=== PATIENT | male | born 1995 | race Caucasian/White ===

== ENCOUNTER 2020-12-19 15:20 | Emergency (ER) | payer OTHER ==
[~2020-12-19] VITALS: Ht 170.2 cm; Wt 63.5 kg
[~2020-12-19 15:20] MED LIST: CELEXA40 MG PO; EFFEXOR 5050 MG/1 T1 PO; NOHOMEMEDICATIONS
[2020-12-19 15:22] VITALS: BP 145/90
[2020-12-19] MEDS ORDERED: ABILIFY 5 MG TAB5 MG PO (15:29)
[2020-12-19] MEDS ORDERED: DEPAKOTE250 MG PO (15:29)
[2020-12-19] MEDS ORDERED: DESVENLAFAXINE50 MG PO (15:29)
== END 2020-12-19 16:46 | disposition home or self-care (01) ==
LOC: M.ERS 15:20
DX: S61.412A Laceration without foreign body of left hand, initial encounter (principal); Z79.899 Other long term (current) drug therapy; W22.8XXA Striking against or struck by other objects, initial encounter; Y93.89 Activity, other specified; Y92.69 Other specified industrial and construction area as the place of occurrence of the external cause; Y99.9 Unspecified external cause status